=== PATIENT | male | born 1990 ===

== ENCOUNTER 2020-09-08 10:26 | Outpatient (CLI) | payer MEDICAID ==
[~2020-09-08] VITALS: Ht 188 cm; Wt 137.0 kg
[2020-09-08 10:58] VITALS: BP 127/70
--- NOTE | 2020-09-08 13:45 | Consultation ---
DATE OF CONSULTATION: 09/08/2020 GASTROENTEROLOGY CONSULTATION CONSULTING PHYSICIAN: Sarwat Irvin MD. CHIEF COMPLAINT: Abnormal liver function test. HISTORY OF PRESENT ILLNESS: The patient is a 30-year-old male with abnormal liver function test, was referred to us for evaluation. PAST MEDICAL HISTORY: 1. GERD. 2. Depression. PAST SURGICAL HISTORY: None. MEDICATION: Imodium. FAMILY HISTORY: Noncontributory. SOCIAL HISTORY: The patient denies any tobacco, alcohol, or drug abuse. ALLERGIES: No known allergies. REVIEW OF SYSTEMS: Positive for GERD, diarrhea, bloating. PHYSICAL EXAMINATION: VITAL SIGNS: Temperature 97.7, blood pressure 127/70, pulse 66. Height is 6 feet 2 inches. Weight is 302. HEENT: Normocephalic and atraumatic. Sclerae are anicteric. NECK: Supple. No evidence of obvious lymphadenopathy. CARDIOVASCULAR: Regular rate and rhythm. Plus S1-S2. LUNGS: Clear to auscultation bilaterally. ABDOMEN: Positive bowel sounds. Soft and nontender. No rebound. No guarding. No peritoneal sign. EXTREMITIES: No cyanosis, no clubbing, no edema. ASSESSMENT: The patient is a 30-year-old male with diarrhea and abnormal liver function tests. Abdominal ultrasound showing fatty liver. Hepatitis panel apparently negative. PLAN: The patient might have celiac disease that would explain the diarrhea and also abnormal liver function tests. Our plan will be to send the liver function tests repeat. We are going to try to get workup for liver disease other cause of liver problems. The patient to come back after the blood work is done for further evaluation. Sarwat Irvin M.D. DR: KAYLIE JOB#: [id number] CC:
== END 2020-09-08 12:26 | disposition home or self-care (01) ==
LOC: PAN 10:26
DX: R94.5 Abnormal results of liver function studies (principal); K21.9 Gastro-esophageal reflux disease without esophagitis; F32.9 Major depressive disorder, single episode, unspecified; R14.0 Abdominal distension (gaseous); R19.7 Diarrhea, unspecified; K76.0 Fatty (change of) liver, not elsewhere classified; Z79.899 Other long term (current) drug therapy
CPT/HCPCS: G0463

== ENCOUNTER 2020-10-15 13:19 | Outpatient (CLI) | payer MEDICAID ==
[2020-10-15 13:39] VITALS: BP 152/95
--- NOTE | 2020-10-19 13:49 | General Progress Note ---
Subjective ROS Limited/Unobtainable: Yes Allergies: Coded Allergies: No Known Allergies (Unverified , 09/08/20) Objective General Appearance: alert EENT: normal ENT inspection Neck: supple Cardiovascular: normal rate Respiratory/Chest: lungs clear Abdomen: normal bowel sounds, non tender, soft Extremities: non-tender Assessment/Plan Assessment/Plan: ? AIH positive Anti smooth muscle abx plan liver biopsy chronic diarrhea plan colonoscopy Sarwat Irvin MD Oct 19, 2020 13:49
== END 2020-10-15 15:19 | disposition home or self-care (01) ==
LOC: PAN 13:19
DX: K52.9 Noninfective gastroenteritis and colitis, unspecified (principal)
CPT/HCPCS: 99212